=== PATIENT | male | born 1965 | race Caucasian/White ===

== ENCOUNTER 2016-06-08 07:22 | Day surgery (SDC) | payer OTHER ==
[2016-06-05 09:55] VITALS: Ht 172.7 cm; Wt 91.0 kg
[2016-06-08] VITALS (13 sets, daily range): BP systolic 100–145; BP diastolic 70–89; PULSE 76–98; RESP 0–20
[~2016-06-08] VITALS: Ht 172.7 cm; Wt 91.0 kg
[2016-06-08 08:59] LABS: BASOPHILS % 0.6 % (0.0-2.0); EOSINOPHILS # 0.2 10^3/ul (0.0-0.5); EOSINOPHILS % 2.8 % (0.0-7.0); HEMATOCRIT 45.3 % (42.0-52.0); HEMOGLOBIN 15.2 g/dl (14.0-18.0); LYMPHOCYTES # 1.9 10^3/ul (0.8-2.9); MEAN CORPUSCULAR HEMOGLOBIN 29.4 pg (29.0-33.0); MEAN CORPUSCULAR HGB CONC 33.7 g/dl (32.0-37.0); MEAN CORPUSCULAR VOLUME 87.4 fl (82.0-101.0); MEAN PLATELET VOLUME 10.8 fl (7.4-10.4); MONOCYTE # 0.6 10^3/ul (0.3-0.9); MONOCYTES % 9.5 % (0.0-11.0); NEUTROPHILS % 59.1 % (39.0-77.0); PLATELET COUNT 260 10^3/UL (140-440); RED BLOOD COUNT 5.18 10^6/ul (4.70-6.10); RED CELL DISTRIBUTION WIDTH 12.9 % (11.5-14.5); UNCORRECTED WBC 6.8 10^3/ul (4.8-10.8); WHITE BLOOD COUNT 6.8 10^3/ul (4.8-10.8)
[2016-06-08 09:04] LABS: CONDITION 1
[2016-06-08 09:06] LABS: INR 0.92; PROTIME 12.4 Sec (12.2-14.2)
[2016-06-08 09:07] LABS: PARTIAL THROMBOPLASTIN TIME 28.8 Sec (25.0-35.0)
[2016-06-08 09:08] LABS: POTASSIUM 4.5 mmol/L (3.5-5.1)
[2016-06-08 09:17] LABS: CALCIUM 9.1 mg/dl (8.4-10.2); CREATININE 1.12 mg/dl (0.61-1.24)
[2016-06-08] MEDS ORDERED: CEFAZOLIN 2 GM/50 ML (PMX) 50 ML IVPB ONE (10:30)
[2016-06-08] MEDS ORDERED: SOD CHLORIDE 0.9% 1,000 ML IV ONE (10:30)
[2016-06-08] MEDS ORDERED: SUCCINYLCHOLINE CHLORIDE 100 MG/5 ML SYG IV ONE (10:31)
[2016-06-08] MEDS ORDERED: PROPOFOL 20 ML ONE (10:31)
[2016-06-08] MEDS ORDERED: LIDOCAINE 2% (SDV) 5 ML INJ ONE (10:31)
[2016-06-08] MEDS ORDERED: FENTAnyl 50 MCG/ML VIAL ONE (10:32)
[2016-06-08] MEDS ORDERED: MIDAZOLAM 1 MG/ML 2 ML INJ ONE (10:32)
[2016-06-08] MEDS ORDERED: CEFAZOLIN 1 GM INJ ONE (12:30)
[2016-06-08] MEDS ORDERED: ONDANSETRON 4 MG INJ ONE (12:37)
[2016-06-08] MEDS ORDERED: METOCLOPRAMIDE 10 MG INJ ONE (12:37)
[2016-06-08] MEDS ORDERED: HYDROmorphONE 2 MG/ML SYG ONE (12:45)
[2016-06-08] MEDS ORDERED: NALOXONE (0.4 MG/ML) INJ ONE (13:18)
[2016-06-08] MEDS ORDERED: DIPHENHYDRAMINE 50 MG INJ IV PRN (14:00)
[2016-06-08] MEDS ORDERED: FENTAnyl 50 MCG/ML VIAL IV PRN (14:00)
[2016-06-08] MEDS ORDERED: OXYCODONE/ACETAMINOPHEN (5/325) TAB PO PRN (14:00)
[2016-06-08] MEDS ORDERED: ONDANSETRON 4 MG INJ IV PRN (14:00)
[2016-06-08] MEDS ORDERED: PROCHLORPERAZINE 10 MG INJ IV PRN (14:00)
[2016-06-08] MEDS ORDERED: MEPERIDINE 25 MG INJ IV PRN (14:00)
[2016-06-08] MEDS ORDERED: METOCLOPRAMIDE 10 MG INJ IV PRN (14:00)
[2016-06-08] MEDS ORDERED: KETOROLAC 30 MG INJ IV ONE (14:00)
--- NOTE | 2016-06-08 14:17 | RADRPT ---
PROCEDURE: XR Chest. CLINICAL INDICATION: Preoperative chest TECHNIQUE: Chest AP portable. COMPARISON: No comparison available. FINDINGS: The mediastinal structures are unremarkable. The heart is normal in size and configuration. The pu lmonary vascularity is normal. The lung garcia are unremarkable. No consolidation is identified. The pleural spaces are unremarkable. The axial skeleton is unremarkable. IMPRESSION: No active intrathoracic disease. RPTAT: [facility] .Yordan Fish MD, MD Date Time Electronically viewed and signed by .Yordan Fish MD, MD on 06/08/2016 14:16 .B/
--- NOTE | 2016-06-08 17:25 | OPR ---
DATE OF OPERATION: 06/08/2016 PREOPERATIVE DIAGNOSIS: Incarcerated ventral/umbilical hernia. POSTOPERATIVE DIAGNOSIS: Incarcerated ventral/umbilical hernia. OPERATION PERFORMED: Ventral herniorrhaphy. ANESTHESIA: General. ANESTHESIOLOGIST: Vanessa Sapp MD SURGEON: Yuriy Marroquin MD HANDLE MACHINE OPERATOR: Giovanni Mejia MD INDICATIONS FOR PROCEDURE: The patient is a 51-year-old male who presented with a painful incarcera rc ventral hernia which is located just above the umbilicus extending into the umbilicus. He was c ounseled as to the risks versus benefits of surgery. He consented and was scheduled for surgery. DESCRIPTION OF PROCEDURE: The patient was brought to the operating theater, placed under general en dotracheal tube anesthesia. The abdomen was shaved, prepped and draped in usual sterile fashion. A n incision was made directly over the visible hernia extended along the left side of the umbilicus. Subcutaneous tissue was then transected with cautery. A large hernia sac was identified just super ior to the umbilicus. It was dissected using cautery to its base with the abdominal wall fascia. T he sac was opened and found to contain omentum. The omentum was returned to the abdomen and the sac was transected at its base with the fascia and sent for permanent pathologic analysis. At this poi nt, Dr. Marroquin deemed the defect suitable for primary repair. It was closed with multiple 0 Prolene sutures in [id number] fashion. Minimal bleeding was controlled with cautery. The wound was th en irrigated with Betadine. The skin was reapproximated with 4-0 Vicryl suture in subcuticular fash ion and Dermabond was applied. Patient tolerated procedure well. Estimated blood loss was 10 mL. There were no complications and the patient was transported in stable condition to the recovery room . Dictated By: YURIY MARROQUIN MD TL/NTS Conf#: [id number] DID#: [id number]
--- NOTE | 2016-06-09 14:37 | RADRPT ---
Vent Rate: 80 bpm RR Interval: 0 msec PA Interval: 168 msec QRS Duration: 80 msec QT Interval: 356 msec QTC Interval: 410 msec P-R-T Brandon: 35 - 34 - 39 degrees Normal sinus rhythm Normal ECG Electronically Signed By: Yo Perez [id number]
== END 2016-06-08 15:45 | disposition home or self-care (01) ==
LOC: SDS 07:22
PROVIDERS: ATTEND Surgery Surgical Oncology
DX: K43.6 Other and unspecified ventral hernia with obstruction, without gangrene (principal)
CPT/HCPCS: 49561; 71010; 80048; 85025; 85610; 85730; 88302; 93005; J0330; J0690; J1170; J1885; J2250; J2310; J2405; J2765; J3010; Z7512; Z7610